=== PATIENT | female | born 1950 | race African-American/Black ===

== ENCOUNTER 2016-10-13 22:55 | Inpatient (IN) | payer OTHER ==
[~2016-10-13] VITALS: Ht 162.6 cm; Wt 64.4 kg
[2016-10-13 23:30] VITALS: BP 148/72
[2016-10-13] MEDS ORDERED: Famotidine 20 MG/ 2ML VIAL IVP ONE (23:45)
[2016-10-14] VITALS (10 sets, daily range): BP systolic 135–159; BP diastolic 61–79
[2016-10-14 00:15] LABS: APPEARANCE,URINE CLEAR; KETONES,URINE NEGATIVE (NEGATIVE); LEUKOCYTE ESTERASE ,URINE 3+ (NEGATIVE); NITRITE,URINE NEGATIVE (NEGATIVE); PH,URINE 6 (4.5-8.0); PROTEIN,URINE NEGATIVE (NEGATIVE); UROBILINOGEN,URINE NORMAL MG/DL (0.0-1.0)
[2016-10-14 00:29] LABS: TROPONIN I < 0.30 ng/mL (<=0.30)
[2016-10-14 00:33] LABS: ALANINE AMINOTRANSFERASE 31 U/L (3-33); ALBUMIN/GLOBULIN RATIO 1.2 (1.0-2.7); ANION GAP 17 (5-15); ASPARTATE AMINO TRANSFERASE 38 U/L (5-40); BASOPHILS % (AUTO) 1.2 % (0.0-2.0); CARBON DIOXIDE 23 mEQ/L (20-30); CHLORIDE 98 mEQ/L (98-107); CREATININE 0.9 mg/dL (0.5-0.9); EOSINOPHILS % (AUTO) 0.5 % (0.0-3.0); GLOMERULAR FILTRATION RATE > 60 mL/min (>60); HEMOLYSIS 163; LIPASE 31 U/L (< 60); LYMPHOCYTES % (AUTO) 12.6 % (20.0-45.0); MEAN CORPUSCULAR HEMOGLOBIN 27.5 PG (27.0-31.0); MEAN CORPUSCULAR HGB CONC 30.4 G/DL (32.0-36.0); MEAN CORPUSCULAR VOLUME 90 FL (80-99); MEAN PLATELET VOLUME 7.1 FL (6.5-10.1); NEUTROPHILS % (AUTO) 81.8 % (45.0-75.0); PLATELET COUNT 180 K/UL (150-450); POTASSIUM 4.5 mEQ/L (3.4-4.9); RED CELL DISTRIBUTION WIDTH 12.9 % (11.6-14.8); SODIUM 138 mEQ/L (135-145); TOTAL PROTEIN 7.4 g/dL (6.6-8.7); WHITE BLOOD COUNT 10.7 K/UL (4.8-10.8)
[2016-10-14 00:37] LABS: BACTERIA,URINE FEW /HPF; RBC,URINE 0-2 /HPF (0 - 2); SQUAMOUS EPITHELIAL CELL,UR FEW /LPF (NONE/OCC); WBC,URINE 0-2 /HPF (0 - 2)
[2016-10-14] MEDS ORDERED: Nitroglycerin Subl 0.4mg tab (Bottle Of 25) SL PRN (01:15)
--- NOTE | 2016-10-14 04:44 | Emergency Room Report ---
History of Present Illness General Chief Complaint: Chest Pain Source: Patient Present Illness HPI 66-year-old female presents to ED complaining of chest tightness, vomiting. Globe Cleaner at bedside and states symptoms started around 9 PM tonight. Patient notes tightness in the chest, 8/10, midsternal, nonradiating. No aggravating relieving factors. Denies fevers or chills. Denies cough. Patient also complaining of nausea and vomiting since chest started. Denies any other associated symptoms Allergies: Coded Allergies: No Known Allergies (Unverified , 10/13/16) Patient History Past Medical History: HTN Past Surgical History: none Pertinent Family History: none Social History: Denies: alcohol use, drug use, smoking Now: No Immunizations: UTD Reviewed Nursing Documentation: PMH: Agreed, PSxH: Agreed Nursing Documentation-PMH Past Medical History: No History, Except For Hx Hypertension: Yes Review of Systems All Other Systems: negative except mentioned in HPI Physical Exam Vital Signs Date Time Temp Pulse Resp B/P Pulse Ox O2 Delivery O2 Flow Rate FiO2 10/13/16 23:00 98.2 70 15 151/80 98 Room Air Sp02 EP Interpretation: reviewed, normal General Appearance: no apparent distress, alert, GCS 15, non-toxic Head: normocephalic, atraumatic Eyes: bilateral eye PERRL, bilateral eye normal inspection ENT: hearing grossly normal, normal pharynx, no angioedema, normal voice Neck: full range of motion, supple/symm/no masses Respiratory: chest non-tender, lungs clear, normal breath sounds, speaking full sentences Cardiovascular #1: regular rate, rhythm, no edema Cardiovascular #2: 2+ carotid (R), 2+ carotid (L), 2+ radial (R), 2+ radial (L) , 2+ dorsalis pedis (R), 2+ dorsalis pedis (L) Gastrointestinal: normal bowel sounds, non tender, soft, non-distended, no guarding, no rebound Rectal: deferred Genitourinary: normal inspection, no CVA tenderness Musculoskeletal: back normal, gait/station normal, normal range of motion, non- tender Neurologic: alert, oriented x3, responsive, motor strength/tone normal, sensory intact, speech normal Psychiatric: judgement/insight normal, memory normal, mood/affect normal, no suicidal/homicidal ideation Reflexes: 3+ bicep (R), 3+ bicep (L), 3+ tricep (R), 3+ tricep (L), 3+ knee (R) , 3+ knee (L) Skin: normal color, no rash, warm/dry, well hydrated Lymphatic: no adenopathy Medical Decision Making Diagnostic Impression: Primary Impression: ACS (acute coronary syndrome) ER Course Hospital Course 66-year-old female presents ED complaining of chest tightness, nausea and vomiting Differential diagnoses include: MT/unstable angina, contusion, muscle strain, PTX, rib fracture Clinical course Patient placed on stretcher. on manager monitoring. After initial history and physical I ordered labs, EKG, chest x-ray, NTG labs reviewed- no leukocytosis, hb/hct stable, electrolytes ok, trop negative Chest x-ray- no acute process Case discussed with Dr. simon and he agreed to accept the patient to his service for further care and support I. I feel this is a highly complex case requiring extensive working including EKG/Rhythm strip, Xray/CT/US, Blood/urine lab work, repeat exams while in ED, and administration of strong opiates/narcotics for pain control, admission to hospital or close patient follow up. Diagnosis - ACS admitted to telemetry in serious condition Labs Test 10/13/16 23:50 10/13/16 23:57 Urine Color Pale yellow Urine Appearance Clear Urine pH 6 (4.5-8.0) Urine Specific [place] 1.015 (1.005-1.035) Urine Protein Negative (NEGATIVE) Urine Glucose (UA) Negative (NEGATIVE) Urine Ketones Negative (NEGATIVE) Urine Occult Blood Negative (NEGATIVE) Urine Nitrite Negative (NEGATIVE) Urine Bilirubin Negative (NEGATIVE) Urine Urobilinogen Normal MG/DL (0.0-1.0) Urine Leukocyte Esterase 3+ (NEGATIVE) Urine RBC 0-2 /HPF (0 - 2) Urine WBC 0-2 /HPF (0 - 2) Urine Squamous Epithelial Cells Few /LPF (NONE/OCC) Urine Bacteria Few /HPF (NONE) White Blood Count 10.7 K/UL (4.8-10.8) Red Blood Count 4.60 M/UL (4.20-5.40) Hemoglobin 12.7 G/DL (12.0-16.0) Hematocrit 41.7 % (37.0-47.0) Mean Corpuscular Volume 90 FL (80-99) Mean Corpuscular Hemoglobin 27.5 PG (27.0-31.0) Mean Corpuscular Hemoglobin Concent 30.4 G/DL (32.0-36.0) Red Cell Distribution Width 12.9 % (11.6-14.8) Platelet Count 180 K/UL (150-450) Mean Platelet Volume 7.1 FL (6.5-10.1) Neutrophils (%) (Auto) 81.8 % (45.0-75.0) Lymphocytes (%) (Auto) 12.6 % (20.0-45.0) Monocytes (%) (Auto) 4.0 % (1.0-10.0) Eosinophils (%) (Auto) 0.5 % (0.0-3.0) Basophils (%) (Auto) 1.2 % (0.0-2.0) Sodium Level 138 mEQ/L (135-145) Potassium Level 4.5 mEQ/L (3.4-4.9) Chloride Level 98 mEQ/L (98-107) Carbon Dioxide Level 23 mEQ/L (20-30) Anion Gap 17 (5-15) Blood Urea Nitrogen 11 mg/dL (7-23) Creatinine 0.9 mg/dL (0.5-0.9) Estimat Glomerular Filtration Rate > 60 mL/min (>60) Glucose Level 137 mg/dL (74-106) Calcium Level 10.0 mg/dL (8.6-10.2) Total Bilirubin 0.2 mg/dL (0.0-1.2) Aspartate Amino Transf (AST/SGOT) 38 U/L (5-40) Alanine Aminotransferase (ALT/SGPT) 31 U/L (3-33) Alkaline Phosphatase 82 U/L (35-104) Total Creatine Kinase 124 U/L (26-140) Creatine Kinase MB 2.0 ng/mL (< 3.8) Creatine Kinase MB Relative Index 1.6 Troponin I < 0.30 ng/mL (<=0.30) Total Protein 7.4 g/dL (6.6-8.7) Albumin 4.1 g/dL (3.5-5.2) Globulin 3.3 g/dL Albumin/Globulin Ratio 1.2 (1.0-2.7) Lipase 31 U/L (< 60) EKG Diagnostic Results Rate: bradycardiac Rhythm: NSR ST Segments: no acute changes ASA given to the pt in ED: Yes Rhythm Strip Diag. Results EP Interpretation: yes Rhythm: NSR, no PVC's, no ectopy Chest X-Ray Diagnostic Results EP Interpretation: Yes Findings: no consolidation, no effusion, no pneumothorax, no acute cardiopulmonary disease Number of Views: 1 Last Vital Signs Date Time Temp Pulse Resp B/P Pulse Ox O2 Delivery O2 Flow Rate FiO2 10/14/16 03:26 98.2 61 17 149/77 94 Room Air Status: improved Disposition: ADMITTED INPATIENT Condition: Serious Referrals: [facility],REFERRING (PCP) ARLIN MONREAL M.D. Oct 14, 2016 04:43
[2016-10-14] MEDS ORDERED: NIFEDIPINE10 MG ORAL (06:55)
--- NOTE | 2016-10-14 10:50 | Diagnostic Imaging Report ---
Indication: Chest Pain Comparison: None A single view chest radiograph was obtained. Findings: Mild basilar atelectasis demonstrated. Cardiomegaly and mild enlargement of the aorta is noted. The bones are osteopenic. Impression: Mild basilar atelectasis
[2016-10-14] MEDS ORDERED: NIFEdipine 10mg cap ORAL SCH ×2 (12:15→14:00)
[2016-10-14 16:36] LABS: TROPONIN I 4.8 ng/mL (<=0.30)
[2016-10-14] MEDS: Aspirin Baby 81mg NG SCH (17:34)
--- NOTE | 2016-10-14 17:40 | Cardiology Progress Note ---
Assessment/Plan Assessment/Plan nstemi htn cp need cath statin ecotin no bb as mateo borderline ntg will d/w dr garay Objective Last 24 Hour Vital Signs Date Time Temp Pulse Resp B/P Pulse Ox O2 Delivery O2 Flow Rate FiO2 10/14/16 16:02 98.2 56 21 147/77 97 Room Air 10/14/16 14:01 66 145/79 10/14/16 12:00 98.2 66 18 145/79 93 Nasal Cannula 2.0 10/14/16 11:00 98.2 59 20 145/68 94 Nasal Cannula 2.0 10/14/16 10:31 98.2 59 20 145/68 94 Nasal Cannula 2.0 10/14/16 09:30 98.2 59 18 159/68 97 Nasal Cannula 2.0 10/14/16 08:30 98.2 58 21 154/65 97 Nasal Cannula 2.0 10/14/16 07:20 98.2 65 16 140/61 95 Nasal Cannula 2.0 10/14/16 06:51 98.2 67 19 140/67 95 Nasal Cannula 2.0 10/14/16 05:41 98.2 69 22 149/64 98 Nasal Cannula 2.0 10/14/16 03:26 98.2 61 17 149/77 94 Room Air 10/14/16 01:19 141/80 10/13/16 23:30 98.2 66 15 148/72 95 Room Air 10/13/16 23:30 70 15 Room Air 10/13/16 23:00 98.2 70 15 151/80 98 Room Air Intake and Output 10/13/16 10/14/16 19:00 07:00 Intake Total 1000 ml Balance 1000 ml IV Total 1000 ml # Voids 3 Laboratory Tests Test 10/13/16 23:50 10/13/16 23:57 10/14/16 15:15 Urine Color Pale yellow Urine Appearance Clear Urine pH 6 (4.5-8.0) Urine Specific [place] 1.015 (1.005-1.035) Urine Protein Negative (NEGATIVE) Urine Glucose (UA) Negative (NEGATIVE) Urine Ketones Negative (NEGATIVE) Urine Occult Blood Negative (NEGATIVE) Urine Nitrite Negative (NEGATIVE) Urine Bilirubin Negative (NEGATIVE) Urine Urobilinogen Normal MG/DL (0.0-1.0) Urine Leukocyte Esterase 3+ (NEGATIVE) H Urine RBC 0-2 /HPF (0 - 2) Urine WBC 0-2 /HPF (0 - 2) Urine Squamous Epithelial Cells Few /LPF (NONE/OCC) Urine Bacteria Few /HPF (NONE) White Blood Count 10.7 K/UL (4.8-10.8) Red Blood Count 4.60 M/UL (4.20-5.40) Hemoglobin 12.7 G/DL (12.0-16.0) Hematocrit 41.7 % (37.0-47.0) Mean Corpuscular Volume 90 FL (80-99) Mean Corpuscular Hemoglobin 27.5 PG (27.0-31.0) Mean Corpuscular Hemoglobin Concent 30.4 G/DL (32.0-36.0) L Red Cell Distribution Width 12.9 % (11.6-14.8) Platelet Count 180 K/UL (150-450) Mean Platelet Volume 7.1 FL (6.5-10.1) Neutrophils (%) (Auto) 81.8 % (45.0-75.0) H Lymphocytes (%) (Auto) 12.6 % (20.0-45.0) L Monocytes (%) (Auto) 4.0 % (1.0-10.0) Eosinophils (%) (Auto) 0.5 % (0.0-3.0) Basophils (%) (Auto) 1.2 % (0.0-2.0) Sodium Level 138 mEQ/L (135-145) Potassium Level 4.5 mEQ/L (3.4-4.9) Chloride Level 98 mEQ/L (98-107) Carbon Dioxide Level 23 mEQ/L (20-30) Anion Gap 17 (5-15) H Blood Urea Nitrogen 11 mg/dL (7-23) Creatinine 0.9 mg/dL (0.5-0.9) Estimat Glomerular Filtration Rate > 60 mL/min (>60) Glucose Level 137 mg/dL (74-106) H Calcium Level 10.0 mg/dL (8.6-10.2) Total Bilirubin 0.2 mg/dL (0.0-1.2) Aspartate Amino Transf (AST/SGOT) 38 U/L (5-40) Alanine Aminotransferase (ALT/SGPT) 31 U/L (3-33) Alkaline Phosphatase 82 U/L (35-104) Total Creatine Kinase 124 U/L (26-140) Creatine Kinase MB 2.0 ng/mL (< 3.8) Creatine Kinase MB Relative Index 1.6 Troponin I < 0.30 ng/mL (<=0.30) 4.80 ng/mL (<=0.30) *H Total Protein 7.4 g/dL (6.6-8.7) Albumin 4.1 g/dL (3.5-5.2) Globulin 3.3 g/dL Albumin/Globulin Ratio 1.2 (1.0-2.7) Lipase 31 U/L (< 60) ABDON ARMAS Oct 14, 2016 17:40
[2016-10-14 18:30] LABS: BASOPHILS % (AUTO) 1.2 % (0.0-2.0); EOSINOPHILS % (AUTO) 0.3 % (0.0-3.0); LYMPHOCYTES % (AUTO) 24.1 % (20.0-45.0); MEAN CORPUSCULAR HEMOGLOBIN 27.9 PG (27.0-31.0); MEAN CORPUSCULAR HGB CONC 31.1 G/DL (32.0-36.0); MEAN CORPUSCULAR VOLUME 90 FL (80-99); MEAN PLATELET VOLUME 6.7 FL (6.5-10.1); MONOCYTES % (AUTO) 7.7 % (1.0-10.0); NEUTROPHILS % (AUTO) 66.7 % (45.0-75.0); PLATELET COUNT 220 K/UL (150-450)
[2016-10-14] MEDS: Nitroglycerin 2% oint pkt TOPIC SCH (18:41)
[2016-10-14] MEDS ORDERED: Heparin 25,000u/D5W 500ml 500 ML IV SCH (19:00)
[2016-10-14] MEDS ORDERED: Heparin 5000 units/ml inj IV ONE (19:00)
--- NOTE | 2016-10-14 20:27 | History and Physical Report ---
DATE OF ADMISSION: 10/14/2016 HISTORY OF PRESENT ILLNESS: This is a 66-year-old female who came to the emergency room with chest tightness and emesis. The patient states that symptoms started around 9 a.m. last night. She denies any specific activity that triggered the symptomatology. At this point, she is pain free. The patient received nitroglycerin and had emesis. She received aspirin, which is able to keep down. At this time, she is feeling well. Her EKG shows nonspecific changes. PAST MEDICAL HISTORY: Hypertension. PAST SURGICAL HISTORY: Previous surgeries include laparoscopy several years ago for previous history of abdominal surgery. ALLERGIES: Oysters. MEDICATIONS: Home medications, nifedipine ER 60 mg p.o. daily. SOCIAL HISTORY: She admits to tobacco usage, occasional. Denies alcohol usage. REVIEW OF SYSTEMS: Denies any headaches, hematemesis, melena, or hematochezia. PHYSICAL EXAMINATION: GENERAL: The patient is a 66-year-old female. VITAL SIGNS: Blood pressure 150/80, heart rate 74, respiratory 18 and she is afebrile. HEENT: Unremarkable. CHEST: Clear breath sounds bilaterally. There is some palpable chest wall tenderness to palpation. ABDOMEN: Soft. EXTREMITIES: There is edema. LABORATORY AND DIAGNOSTIC DATA: Lab testing shows normal CBC and BMP. Troponin is negative. EKG discussed above. X-ray chest per ER physician is unremarkable. IMPRESSION: 1. Chest pain, rule out acute coronary syndrome. 2. History of hypertension. 3. Smoker. DISCUSSION: We will place on observation. We will request Cardiology evaluation and a stress echo. Serial troponins. 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 Anticipate discharge if all testing is negative. Terrell Clemens M.D. DR: ALICIA JOB#: [id number] CC:
[2016-10-14] MEDS ORDERED: Atorvastatin 80mg tab ORAL SCH (21:00)
--- NOTE | 2016-10-14 23:57 | Consultation ---
DATE OF CONSULTATION: 10/14/2016 CARDIOLOGY CONSULTATION CONSULTING PHYSICIAN: Henry Parisi M.D. REFERRING PHYSICIAN: Terrell Clemens M.D. REASON FOR REFERRAL: Chest pain. HISTORY OF PRESENT ILLNESS: This is a 66-year-old female, who presents to the hospital with an episode of tightness in the chest. This occurred while at home last night and eventually came to the hospital, has received some medication, eventually discomfort resolved completely and she has not had discomfort ever since. This was the first episode. She is usually active walking and she even climbs some stairs without having any discomfort. There is no PND. No orthopnea. No palpitations. No dizziness or lightheadedness on standing and uses one pillow at night. Her past medical history is positive for high blood pressure and a viral infection. She is active usually and walks on a regular basis and climbs stairs without any discomfort. She uses one pillow. Note, limitation on exercise because of chest pains or shortness of breath previously. PAST MEDICAL HISTORY: Positive for high blood pressure and a viral infection that she has had after returning from [place] last year and nothing recently. She denies all the other ones. ALLERGIES: She has no known drug allergies. SOCIAL HISTORY: She does smoke some. Occasionally drinks alcoholic beverages. No drug use. She is employed. REVIEW OF SYSTEMS: Constitutional: Negative. Pulmonary: Negative. Gastrointestinal: She did have nausea and vomiting last night and some nausea this morning. Otherwise, negative. No bloody stools or black tarry stools. Genitourinary: Negative. Neurologic: Negative. PHYSICAL EXAMINATION: GENERAL: Shows be a middle-aged female, in no apparent respiratory distress. She is actually walking in her room. NECK: Supple. No jugular venous distention. No abdominojugular reflux noted. LUNGS: Clear to auscultation and percussion. CARDIAC: S1 is normal. S2 is normal. Regular rate and rhythm. No heaves, thrills, or gallops noted. ABDOMEN: Soft and nontender. Positive bowel sounds. EXTREMITIES: There is no clubbing, cyanosis, or edema. NEUROLOGIC: She is awake, alert, and responsive. Moves all four extremities. Laboratory Values: EKG basically shows normal sinus rhythm and some T-wave inversion in aVL only. Her blood tests, the first set of cardiac enzymes were less than 0.3 and subsequently 4.8 at approximately 3:30 this afternoon. Sodium 138, potassium 4.5, chloride 98, bicarbonate 23, BUN 11, creatinine 0.9, glucose of 137, and calcium is 10. Liver function tests were all normal. Amylase and lipase are normal as well. White count of 10.7, hemoglobin 12.7, and platelet count 180,000. Urinalysis is fairly unremarkable except for the fact that she has 3+ leukocyte esterase and only 0 to 2 WBCs. A chest x-ray was performed in the emergency room, mild basilar atelectasis. ASSESSMENT: 1. Chest pain. 2. Non-ST elevation myocardial infarction. PLAN: The patient was seen in cardiac consultation. The patient is no longer having chest pain. At the present time with the level of troponin, I would recommend the patient to be started on some anticoagulation and will require cardiac catheterization and bedrest for the time being. She does not require beta-blockers as her heart rate is already on the slower side. Statins will be resumed and nitroglycerin on a p.r.n. basis for pain. She should be transferred for higher level of care for cardiac catheterization and accepting facility contracted with her insurance. Dr. Clemens, thank you for allowing me to participate in the care of this patient. Henry Parisi M.D. DR: UMER JOB#: [id number] CC:
[2016-10-15] VITALS: BP 125/60
[2016-10-15 00:26] LABS: TROPONIN I 7.13 ng/mL (<=0.30)
[2016-10-15] MEDS ORDERED: Heparin 5000 units/ml inj IV ONE ×2 (02:30→10:15)
[2016-10-15] MEDS: Heparin 25,000u/D5W 500ml 500 ML IV SCH ×2 (03:30→10:38)
[2016-10-15 04:00] VITALS: BP 115/68
[2016-10-15] MEDS: Nitroglycerin 2% oint pkt TOPIC SCH ×2 (06:00→12:00)
[2016-10-15 08:00] VITALS: BP 100/59
[2016-10-15] MEDS: Aspirin Baby 81mg NG SCH (08:59)
[2016-10-15 10:11] LABS: TROPONIN I 5.88 ng/mL (<=0.30)
--- NOTE | 2016-10-15 10:24 | Pulmonology Progress Note ---
Assessment/Plan Assessment/Plan IMPRESSION: 1. Chest pain, NSTEMI. 2. History of hypertension. 3. Smoker. DISCUSSION: Cardiology evaluation noted. Pt needs heart cath; will arrange transfer to [facility] Continue ASA; heparin gtt Subjective Interval Events: Troponin elevation noted; pt now on heparin gtt. Constitutional: Reports: no symptoms HEENT: Repors: no symptoms Respiratory: Reports: no symptoms Cardiovascular: Reports: no symptoms Gastrointestinal/Abdominal: Reports: no symptoms Allergies: Coded Allergies: No Known Allergies (Unverified , 10/13/16) Objective Last 24 Hour Vital Signs Date Time Temp Pulse Resp B/P Pulse Ox O2 Delivery O2 Flow Rate FiO2 10/15/16 09:00 72 100/59 10/15/16 08:00 67 10/15/16 08:00 97.7 72 19 100/59 93 Room Air 10/15/16 06:00 115/68 10/15/16 04:00 98.1 77 20 115/68 93 Room Air 10/15/16 04:00 67 10/15/16 00:00 59 10/15/16 00:00 98.1 61 20 125/60 92 Room Air 10/14/16 20:00 55 10/14/16 20:00 97.5 54 22 135/67 94 Room Air 10/14/16 18:41 147/77 10/14/16 16:02 98.2 56 21 147/77 97 Room Air 10/14/16 16:00 50 10/14/16 14:01 66 145/79 10/14/16 12:00 98.2 66 18 145/79 93 Nasal Cannula 2.0 10/14/16 11:00 98.2 59 20 145/68 94 Nasal Cannula 2.0 10/14/16 10:31 98.2 59 20 145/68 94 Nasal Cannula 2.0 Intake and Output 10/14/16 10/15/16 19:00 07:00 Intake Total 1300 ml 692.748 ml Balance 1300 ml 692.748 ml Intake Oral 300 ml 600 ml IV Total 1000 ml 92.748 ml # Voids 4 General Appearance: no acute distress HEENT: normocephalic Respiratory/Chest: chest wall non-tender, lungs clear Cardiovascular: normal peripheral pulses, normal rate Abdomen: normal bowel sounds, soft, non tender Laboratory Tests 10/14/16 15:15: Troponin I 4.80*H 10/14/16 18:05: White Blood Count 10.0, Red Blood Count 4.70, Hemoglobin 13.1, Hematocrit 42.1, Mean Corpuscular Volume 90, Mean Corpuscular Hemoglobin 27.9, Mean Corpuscular Hemoglobin Concent 31.1L, Red Cell Distribution Width 13.0, Platelet Count 220, Mean Platelet Volume 6.7, Neutrophils (%) (Auto) 66.7, Lymphocytes (%) (Auto) 24.1, Monocytes (%) (Auto) 7.7, Eosinophils (%) (Auto) 0.3, Basophils (%) (Auto ) 1.2, Activated Partial Thromboplast Time 25 10/14/16 23:10: Troponin I 7.13*H 10/15/16 01:45: Activated Partial Thromboplast Time 34H 10/15/16 08:40: Activated Partial Thromboplast Time 62H, Troponin I 5.88*H Current Medications Medications (Trade) Dose Ordered Sig/C[place]ell Route PRN Reason Start Time Stop Time Status Last Admin Dose Admin Aspirin (ASA) 81 mg DAILY NG 10/14/16 17:00 11/13/16 16:59 10/15/16 08:59 Atorvastatin Calcium 80 mg 80 mg BEDTIME ORAL 10/14/16 21:00 11/13/16 20:59 10/14/16 19:53 Dextrose (Dextrose 50%) STAT PRN IV Hypoglycemia 10/14/16 12:00 11/13/16 11:59 Heparin Sodium/ Dextrose (Heparin) 500 ml @ 23.188 mls/ hr adjust per protocol IV 10/15/16 02:14 11/13/16 18:59 10/15/16 03:30 Nifedipine (Procardia XL) 60 mg DAILY ORAL 10/14/16 13:00 11/13/16 12:59 10/14/16 14:01 Nitroglycerin (Nitro-Bid) 1 inch TID@0600,1200,1800 TOPIC 10/14/16 18:00 11/13/16 17:59 10/14/16 18:41 Terrell Clemens MD Oct 15, 2016 10:24
[2016-10-15 12:00] VITALS: BP 121/74
--- NOTE | 2016-10-15 14:31 | Cardiology Progress Note ---
Assessment/Plan Assessment/Plan nstemi htn cp needs cath statin ecotin no bb as mateo borderline ntg has been on heparin echo performed to be reviewed transferring for cath [facility] sm[facility] d/w pt understood trop peak at 7 now down trending no pain since very early hours yest bonnie only abn on ekg t iversion in lead avl may have cx lesion Subjective Cardiovascular: Denies: chest pain, irregular heart rate, lightheadedness Respiratory: Denies: shortness of breath Gastrointestinal/Abdominal: Denies: abdominal pain Genitourinary: Denies: burning Objective Last 24 Hour Vital Signs Date Time Temp Pulse Resp B/P Pulse Ox O2 Delivery O2 Flow Rate FiO2 10/15/16 12:00 74 10/15/16 09:00 72 100/59 10/15/16 08:00 67 10/15/16 08:00 97.7 72 19 100/59 93 Room Air 10/15/16 06:00 115/68 10/15/16 04:00 98.1 77 20 115/68 93 Room Air 10/15/16 04:00 67 10/15/16 00:00 59 10/15/16 00:00 98.1 61 20 125/60 92 Room Air 10/14/16 20:00 55 10/14/16 20:00 97.5 54 22 135/67 94 Room Air 10/14/16 18:41 147/77 10/14/16 16:02 98.2 56 21 147/77 97 Room Air 10/14/16 16:00 50 General Appearance: alert Neck: supple Cardiovascular: normal rate, regular rhythm Respiratory/Chest: lungs clear, normal breath sounds Abdomen: normal bowel sounds, non tender, soft Extremities: no swelling Intake and Output 10/14/16 10/15/16 19:00 07:00 Intake Total 1300 ml 713.348 ml Balance 1300 ml 713.348 ml Intake Oral 300 ml 600 ml IV Total 1000 ml 113.348 ml # Voids 4 Laboratory Tests Test 10/14/16 15:15 10/14/16 18:05 10/14/16 23:10 10/15/16 01:45 Troponin I 4.80 ng/mL (<=0.30) *H 7.13 ng/mL (<=0.30) *H White Blood Count 10.0 K/UL (4.8-10.8) Red Blood Count 4.70 M/UL (4.20-5.40) Hemoglobin 13.1 G/DL (12.0-16.0) Hematocrit 42.1 % (37.0-47.0) Mean Corpuscular Volume 90 FL (80-99) Mean Corpuscular Hemoglobin 27.9 PG (27.0-31.0) Mean Corpuscular Hemoglobin Concent 31.1 G/DL (32.0-36.0) L Red Cell Distribution Width 13.0 % (11.6-14.8) Platelet Count 220 K/UL (150-450) Mean Platelet Volume 6.7 FL (6.5-10.1) Neutrophils (%) (Auto) 66.7 % (45.0-75.0) Lymphocytes (%) (Auto) 24.1 % (20.0-45.0) Monocytes (%) (Auto) 7.7 % (1.0-10.0) Eosinophils (%) (Auto) 0.3 % (0.0-3.0) Basophils (%) (Auto) 1.2 % (0.0-2.0) Activated Partial Thromboplast Time 25 SEC (23-33) 34 SEC (23-33) H Test 10/15/16 08:40 Activated Partial Thromboplast Time 62 SEC (23-33) H Troponin I 5.88 ng/mL (<=0.30) *ABDON PADILLA Oct 15, 2016 14:31
--- NOTE | 2016-10-15 17:49 | Cardiology Report ---
APPROVED REPORT EKG Measurement Heart [id number] Sinus bradycardia Otherwise normal ECG
--- NOTE | 2016-10-16 10:15 | Discharge Summary ---
Discharge Summary Hospital Course Date of Admission Oct 14, 2016 at 03:00 Date of Discharge Oct 15, 2016 at 15:20 Admitting Diagnosis chest pain, r/o ACUTE CORONARY SYNDROME MARQUITA Garcia is a 66 year old female who was admitted on Oct 14, 2016 at 03: 00 for acute chest pain, r/o Acute Coronary Syndrome 66-year-old female presented to ED complaining of chest tightness, vomiting. Lead Database Administrator at bedside reported that symptoms started around 9 PM . Patient reported chest tightness, 8/10, midsternal, nonradiating., no associated SOB Also reports nausea and vomiting since chest pain started No fevers or chills. No cough Consultations cardio [facility] Course patient admitted with acute chest pain, r/o ACS first troponin negative, subsequent troponin elevated-4.80 cardio followed patient started on hepatin drip follow up 2 subsequent troponin elevated -7.13 and 5.88 on statin and ASA no BB due to borderline bradycardia NTG prn ECHO with EF 60-65% and RVSP of [address] changes, but TWI in lead aVL transfer to [facility] for cardiac cath Discharge Condition Upon Discharge: stable, unchanged Discharge Disposition Patient was transferred to [facility] for cardiac cath Discharge Diagnoses: (1) Acute non-ST elevation myocardial infarction (NSTEMI) (2) Acute chest pain (3) HTN (hypertension) Discharge Instructions Discharge Instructions Special Instructions I have been assigned to complete a D/C Summary on this account. I was not involved in the patient management I have been assigned to complete a D/C Summary on this account. I was not involved in the patient management Nguyen Phillips NP (Vanchtein) Oct 16, 2016 10:15
--- NOTE | 2016-10-22 16:11 | Cardiology Report ---
APPROVED REPORT EXAM: Two-dimensional and M-mode echocardiogram with Doppler and color Doppler. INDICATION Chest Pain M-Mode DIMENSIONS IVSd1.2 (0.7-1.1cm)Left Atrium (MM)4.1 (1.6-4.0cm) LVDd4.6 (3.5-5.6cm)Aortic Root2.6 (2.0-3.7cm) PWd1.1 (0.7-1.1cm)Aortic Cusp Exc.1.7 (1.5-2.0cm) LVDs2.9 (2.5-4.0cm) PWs1.1 cm Normal left ventricular chamber size, systolic function and wall motion. Left ventricular ejection fraction estimated to be 60-65 %. No evidence of left ventricular hypertrophy. No evidence of pericardial fat or effusion. Mild bi-atrial enlargement by 2D. Focal aortic valve sclerosis with adequate cusp excursion Thickened mitral valve leaflets with normal excursion. Mitral annulus and aortic root calcification. Pulmonic valve not well visualized. Normal tricuspid valve structure. IVC is normal in size with physiologic collapse. A color flow and spectral Doppler study was performed and revealed: No aortic regurgitation. Mild mitral regurgitation. Normal left ventricular diastolic dysfunction. No tricuspid regurgitation. Tricuspid systolic velocities suggests peak right ventricular systolic pressure of 21 mmHg
== END 2016-10-15 15:20 | disposition short-term general hospital (02) | DRG 282 ==
LOC: EMR 10-14 02:24 → 2W 10-14 03:00 → EDBEDREQ 10-14 06:39
DX: I21.4 Non-ST elevation (NSTEMI) myocardial infarction (principal); I10 Essential (primary) hypertension; F17.210 Nicotine dependence, cigarettes, uncomplicated
CPT/HCPCS: 36415; 71010; 80053; 81003; 82550; 82553; 83690; 84484; 85025; 85730; 93005; 93306; J2405